=== PATIENT | male | born 2005 | race Hispanic/Latino ===

== ENCOUNTER 2024-06-17 11:22 | Emergency (ER) | payer SELFPAY ==
[2024-06-17 11:25] VITALS: BP 157/77
[2024-06-17 11:46] LABS: % Basophils 0.2 % (0-2); % Eosinophils 0.6 % (0-6); % Lymphocytes 38.3 % (20.5-51.1); % Monocytes 9.6 % (1.7-9.3); % Neutrophils 51.3 % (42.2-75.2); Absolute Lymphocytes 2.4 10^3/uL (1.2-3.4); Absolute Monocytes 0.6 10^3/uL (0.1-0.6); Absolute Neutrophils 3.2 10^3/uL (1.4-6.5); Hematocrit 42.2 % (39.0-52.0); Hemoglobin 15.4 g/dL (13.0-18.0); Mean Corp Hgb Conc. 36.5 g/dL (33.0-37.0); Mean Corpuscular Hgb 30.3 pg (27.0-31.0); Mean Corpuscular Volume 82.9 fL (80.0-94.0); Mean Platelet Volume 9.7 fL (7.4-10.4); Nucleated Red Blood Cells % 0 % (-); Platelet Count 239 10^3/uL (130-400); Red Blood Cell Count 5.09 10^6/uL (4.70-6.10); Red Cell Dist. Width 11.7 % (11.5-14.5); White Blood Cell Count 6.2 10^3/uL (4.8-10.8)
--- NOTE | 2024-06-17 12:08 | ED.GENMED ---
History of Present Illness
<Eleazar Greene DO - Last Filed: 06/17/24 12:36>
General
Chief Complaint: Chest Pain
Time Seen by Provider: 06/17/24 11:41
<NEO Rutherford - Last Filed: 06/17/24 12:26>
General
Source: patient and milk of lime slaker (Discussed with milk of lime slaker [id number])
Exam Limitations: none
History of Present Illness
History of Present Illness:
19 y/o male pt with no significant PMH presenting to the ED c/o chest pain x 4 days. Pt stated it is an aching pain that started suddenly, local to central left pectoralis does not radiate, at worst its a 2/10, has not tried anything to relief it.
States it is not exacerbated by anything specific 'it just comes and goes'. Reports associated left index and middle finger numbness that occurred once last night while he was laying down. Denies any numbness currently. Came into the ED because he
googled his symptoms and he was was concerned he might be having an UT. Pt has no cardiac history, denies any family history of UT and CVAs. Denies fever, SOB, arm pain, weakness, leg swelling or redness. Denies any recent illness, trauma, falls,
works in construction and often lifts heavy items. global technical writer was used throughout this encounter.
Past History
<NEO Rutherford - Last Filed: 06/17/24 12:26>
Past History
ED Past Medical History: None
ED Past Surgical History: None
Social History
Tobacco: Non-smoker
Alcohol: None
Drug: None
Review of Systems
<NEO Rutherford - Last Filed: 06/17/24 12:26>
Review of Systems
Allergies reviewed?: Yes
Constitutional: Reports no symptoms
EENT: Reports no symptoms
Respiratory: Reports no symptoms
Cardiac: Reports chest pain
ABD/GI: Reports no symptoms
Musculoskeletal: Reports no symptoms
Skin: Reports no symptoms
Neurological: Reports no symptoms
Phy Exam
<NEO Rutherford - Last Filed: 06/17/24 12:26>
General Physical Exam
General Presentation: well appearing and no apparent distress
General age: appears stated age
General Skin: warm and dry
General Habitus: normal
General Mental: alert
General Hydration: appears well hydrated
ENT Exam
ENT Exam: TM's normal, neck supple and normocephalic
Eye Exam
Eye Exam: PERRL and conjunctiva normal
Cardiovascular Exam
Cardiovascular Exam: regular rate/rhythm, no edema, no gallop, no murmur and normal peripheral pulses
Pulmonary Exam
Pulmonary Exam: lungs clear, no respiratory distress, chest non tender, no rhonchi and no cough
Cough: no cough
Gastrointestinal Exam
Gastrointestinal Exam: non tender, soft and non distended
Musculoskeletal Exam
Musculoskeletal Exam: full ROM
Skin Exam
Skin Exam: normal color, warm/dry and no rash
Scores
<Eleazar Greene DO - Last Filed: 06/17/24 12:36>
Heart Score for Chest Pain Patients
STEMI patient?: No
History: Slightly or Non-Suspicious
ECG: Normal
Age: </= 45 years
Risk Factors: No Risk Factors
Troponin: </= Normal Limit
Heart Score for Chest Pain Patients: 0
Heart Score Risk: 2.5% MACE over next 6 weeks
Course
<Eleazar Greene DO - Last Filed: 06/17/24 12:36>
Orders/Labs/Results
Orders:
Orders
06/17/24 11:23
Electrocardiogram (*1) Urgent
Reason for Study: Chest Pain
EKG- Treatment ONCE
06/17/24 11:33
Complete Blood Count/With Diff Urgent
Comprehensive Metabolic Panel Urgent
Troponin I Urgent
06/17/24 12:07
CR Chest - 2 Views Urgent
Comment:
Reason For Exam: ptx
06/17/24 12:08
Ibuprofen [Motrin] 600 mg PO NOW STA
Abnormal Lab Results
06/17/24
11:33
Monocytes % 9.6 H %
(1.7-9.3)
06/17/24 11:33
Vital Signs
Initial and Last Documented VS:
Initial Vital Signs
Temp Pulse Resp BP Pulse Ox
98.2 F 56 16 157/77 99
06/17/24 11:25 06/17/24 11:25 06/17/24 11:25 06/17/24 11:25 06/17/24 11:25
Last Documented Vital Signs
Temp Pulse Resp BP Pulse Ox
98.2 F 66 16 157/77 100
06/17/24 11:25 06/17/24 12:00 06/17/24 12:00 06/17/24 11:25 06/17/24 12:15
<NEO Rutherford - Last Filed: 06/17/24 12:26>
Orders/Labs/Results
Orders:
Orders
06/17/24 11:23
Electrocardiogram (*1) Urgent
Reason for Study: Chest Pain
EKG- Treatment ONCE
06/17/24 11:33
Complete Blood Count/With Diff Urgent
Comprehensive Metabolic Panel Urgent
Troponin I Urgent
06/17/24 12:07
CR Chest - 2 Views Urgent
Comment:
Reason For Exam: ptx
06/17/24 12:08
Ibuprofen [Motrin] 600 mg PO NOW STA
Abnormal Lab Results
06/17/24
11:33
Monocytes % 9.6 H %
(1.7-9.3)
06/17/24 11:33
Vital Signs
Initial and Last Documented VS:
Initial Vital Signs
Temp Pulse Resp BP Pulse Ox
98.2 F 56 16 157/77 99
06/17/24 11:25 06/17/24 11:25 06/17/24 11:25 06/17/24 11:25 06/17/24 11:25
Last Documented Vital Signs
Temp Pulse Resp BP Pulse Ox
98.2 F 66 16 157/77 100
06/17/24 11:25 06/17/24 12:00 06/17/24 12:00 06/17/24 11:25 06/17/24 12:15
<Eleazar Greene DO - Last Filed: 06/17/24 12:36>
MDM/Problems Addressed
Differential Diagnosis Includes:
Costochondritis muscle strain doubt ACS or PE
<Eleazar Greene DO - Last Filed: 06/17/24 12:36>
*Radiology
Radiology exam reviewed: preliminary read by ED provider
*Pulse Oximetry
Patient hypoxic: no
*EKG
Interpreted by ED Provider?: Yes
Interpretation: normal
Comparison EKG: no comparison EKG present
Heart Rate: 78
Rate: normal
Rhythm: sinus
Ischemia: no ischemia
*Compressed Gas Plant Worker Interpretation
Rate: normal
Interpretation: normal
Heart Rate: 78
Rhythm: sinus
*Critical Care Note
Total Time (30-74mins, 75-104mins- exclusive of procedures): Not Applicable
ED Attending Note
<Eleazar Greene DO - Last Filed: 06/17/24 12:36>
ED Attending Note
Patient seen and examined by attending physician: Yes
I performed the substantive portion of visit, reviewed & personally made and approve the management plan that is documented in note by myself or OFELIA.: Yes
ED Attending Note:
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
-
Portions of this chart may have been created with voice recognition software.� Occasional wrong word or��sound alike� substitutions may have occurred due to the inherent limitations of voice recognition software.
Discharge Plan
Departure
Patient Disposition: Home (Routine Discharge)
Date of Disposition: 06/17/24
Time of Disposition: 12:34
Patient with high blood pressure during this ER visit?: No
Condition: Good
Discharge Problem:
Chest pain
Instructions: Costochondritis (DC)
Prescriptions:
New
ibuprofen 600 mg tablet
600 mg PO Q6H PRN (Reason: Pain) Qty: 20 0RF
Referrals:
Adal Rae MD [Active] - Next open appointment
NONE,* [Family Provider] -
Interventions
Interventions:
*Risk Screen - Suicide Last Done: 06/17/24 11:25
*Neglect/Abuse Screening Last Done: 06/17/24 11:25
*ED- Fall Risk Assessment Last Done: 06/17/24 11:25
ED- Cardiac Assessment Last Done: 06/17/24 11:41
Discharge Date and Time
Print Language: NEPALI
[2024-06-17 12:44] LABS: ALT (SGPT) 32 U/L (0-50); AST (SGOT) 34 U/L (17-59); Albumin 4.9 g/dl (3.5-5.0); Alkaline Phosphatase 74 U/L (38-126); Blood Urea Nitrogen 9 mg/dl (9-20); Carbon Dioxide 24 mmol/L (22-30); Chloride 104 mmol/L (98-107); Glucose 106 mg/dl (70-99); Potassium 4.1 mmol/L (3.5-5.1); Sodium 140 mmol/L (135-145); Total Bilirubin 1.1 mg/dl (0.2-1.3); Total Protein 7.8 g/dl (6.3-8.2); eGFR > 60.00
[2024-06-17 12:54] LABS: Troponin I < 0.012 ng/ml
[2024-06-17] MEDS: MOTRIN 600 MG PO (12:56)
== END 2024-06-17 13:24 | disposition home or self-care (01) ==
LOC: EMR 11:22
PROVIDERS: EMERGENCY PHYSICIAN Emergency Medicine
DX: R07.9 Chest pain, unspecified (principal); R20.0 Anesthesia of skin
CPT/HCPCS: 99285; 71046; 80053; 84484; 85025; 93005